=== PATIENT | female | born 1970 | race African-American/Black ===

== ENCOUNTER → 2016-11-13 | Outpatient (CLI) | payer BC ==
[~2016-11-13] MED LIST: ALBU18HF2 IH; TRIA1TAB94 PO; ZOLP10TA2 PO
== END | disposition home or self-care (01) ==
LOC: MAMMO 07:44
PROVIDERS: ATTEND Specialist
DX: C50.911 Malignant neoplasm of unspecified site of right female breast (principal); C50.912 Malignant neoplasm of unspecified site of left female breast; R92.8 Other abnormal and inconclusive findings on diagnostic imaging of breast
CPT/HCPCS: 76642; G0204

== ENCOUNTER → 2017-02-12 | Outpatient (CLI) | payer BC | END | disposition home or self-care (01) | LOC: US 10:33 | PROVIDERS: ATTEND Specialist | DX: C50.911 Malignant neoplasm of unspecified site of right female breast (principal); N60.01 Solitary cyst of right breast | CPT/HCPCS: 76641 ==

== ENCOUNTER → 2017-03-16 | Outpatient (CLI) | payer BC ==
[2017-03-16 07:20] LABS: BASOPHILS % 0.8 % (0.0-2.0); CLARITY URINE CLEAR (CLEAR); COLOR URINE YELLOW (YELLOW); EOSINOPHILS % 0.3 % (0.0-5.0); GLUCOSE URINE NEGATIVE (NEGATIVE); HEMATOCRIT. 38.4 % (36.0-48.0); HEMOGLOBIN. 12.4 g/dL (12.0-16.0); KETONES URINE TRACE (NEGATIVE); LEUKOCYTE ESTERASE URINE TRACE (NEGATIVE); LYMPHOCYTES % 22.1 % (20.0-50.0); MEAN CORPUSCULAR HEMOGLOBIN 23.9 pg (28.0-32.0); MEAN CORPUSCULAR VOLUME 74.3 fL (81.0-99.0); MEAN PLATELET VOLUME 8.5 fl (7.4-10.4); MONOCYTES % 10.5 % (2.0-8.0); NEUTROPHILS % 66.3 % (40.0-76.0); NITRITE URINE NEGATIVE (NEGATIVE); OCCULT BLOOD URINE 2+ (NEGATIVE); PH URINE 5.5 (4.5-8.0); PLATELET 257 x1000/uL (130-400); PROTEIN URINE TRACE (NEGATIVE); RED BLOOD CELL COUNT 5.17 mill/uL (4.2-5.4); RED CELL DISTRIBUTION WIDTH 15.3 % (11.6-14.6); SPECIFIC GRAVITY URINE 1.029 (1.005-1.030)
[2017-03-16 07:23] LABS: INR 1.1; PROTHROMBIN TIME 11.5 sec (9.4-11.6)
[2017-03-16 07:35] LABS: HCG SCREEN NEGATIVE
[2017-03-16 07:55] LABS: CARBON DIOXIDE 27 mEq/L (21-32); CHLORIDE 105 mEq/L (98-107)
== END | disposition home or self-care (01) ==
LOC: LAB 06:50
PROVIDERS: ATTEND Internal Medicine Geriatric Medicine
DX: Z01.812 Encounter for preprocedural laboratory examination (principal); Z79.01 Long term (current) use of anticoagulants
CPT/HCPCS: 36415; 80053; 81001; 84703; 85025; 85610; 85730; 87086

== ENCOUNTER 2017-03-26 05:56 | Day surgery (SDC) | payer BC ==
[~2017-03-26] VITALS: Ht 165.1 cm; Wt 77.1 kg
[2017-03-26] MEDS ORDERED: LACTATED RINGERS 1,000 ML IV SCH (06:40)
[2017-03-26] MEDS ORDERED: LIDOCAINE HCL 1% 20ML VIAL (Pyxis) INJ ONE ×2 (06:51→08:24)
[2017-03-26] MEDS ORDERED: BUPIVACAINE HCL/PF 0.5% (5MG/ML) 10ML ONE (06:52)
[2017-03-26] MEDS ORDERED: BACITRACIN 50,000 UNITS/VIAL ONE (07:34)
[2017-03-26] MEDS ORDERED: METHYLENE BLUE 50 MG/10 ML AMP IV ONE (07:34)
[2017-03-26] MEDS ORDERED: NORMAL SALINE 0.9% 10 ML SYR ONE (07:34)
[2017-03-26] MEDS ORDERED: MIDAZOLAM HCL 2 MG/2 ML VIAL ONE (07:43)
[2017-03-26] MEDS ORDERED: FENTANYL CITRATE/PF 50MCG/ML 2ML VIAL ONE (07:43)
[2017-03-26] MEDS ORDERED: PROPOFOL 200MG/20ML VIAL IV ONE (08:24)
[2017-03-26] MEDS ORDERED: DEXAMETHASONE 4MG/ML 1ML VIAL ONE (08:24)
[2017-03-26] MEDS ORDERED: SODIUM CHLORIDE 0.9% 10ML VIAL ONE ×2 (08:24→09:36)
[2017-03-26] MEDS ORDERED: CEFAZOLIN SODIUM 1000MG/VIAL ONE (08:24)
[2017-03-26] MEDS ORDERED: ONDANSETRON HCL 4MG/2ML VIAL ONE (08:24)
[2017-03-26] MEDS ORDERED: SKIN ADHESIVE 0.7 GM EA TOP ONE (08:40)
[2017-03-26] MEDS ORDERED: HYDROMORPHONE HCL/PF 2MG/ML (OR) ONE (09:35)
[2017-03-26] MEDS ORDERED: ONDANSETRON HCL 4MG/2ML VIAL IV PRN (10:00)
[2017-03-26] MEDS ORDERED: LABETALOL HCL 20MG/4ML CARPUJECT IV PRN (10:00)
[2017-03-26] MEDS ORDERED: HYDROMORPHONE HCL/PF 2MG/ML CPJ IV PRN (10:00)
[2017-03-26] MEDS ORDERED: MEPERIDINE HCL/PF 25MG/ML CPJ IV PRN (10:00)
== END 2017-03-26 11:30 | disposition home or self-care (01) ==
LOC: OR 05:56
PROVIDERS: ATTEND Specialist
DX: D24.1 Benign neoplasm of right breast (principal); N60.31 Fibrosclerosis of right breast; I10 Essential (primary) hypertension; J45.909 Unspecified asthma, uncomplicated; Z88.2 Allergy status to sulfonamides; Z88.8 Allergy status to other drugs, medicaments and biological substances; Z91.030 Bee allergy status
CPT/HCPCS: 19120; 88307; A4216; G0168; J0690; J1100; J1170; J2250; J2405; J3010; J3490; J7120; J2704; Q9968

== ENCOUNTER → 2017-07-29 | Outpatient (CLI) | payer BC ==
[~2017-07-29] MED LIST changes: +ALBUTEROL (0.083%) 2.5MG/3ML NEB ONE
== END | disposition home or self-care (01) ==
LOC: PF 14:53
PROVIDERS: ATTEND Internal Medicine Geriatric Medicine
DX: J45.909 Unspecified asthma, uncomplicated (principal); R79.89 Other specified abnormal findings of blood chemistry; Z79.899 Other long term (current) drug therapy
CPT/HCPCS: 94060; 94727; 94729; J7611

== ENCOUNTER 2017-11-27 18:05 | Emergency (ER) | payer BC ==
[~2017-11-27] VITALS: Ht 162.6 cm; Wt 78.0 kg
[~2017-11-27 18:05] MED LIST changes: -ALBUTEROL (0.083%) 2.5MG/3ML NEB ONE
[2017-11-27] MEDS ORDERED: IBUPROFEN 800MG TABLET PO ONE (18:15)
[2017-11-27 19:50] VITALS: BP 161/99
== END 2017-11-27 19:45 | disposition home or self-care (01) ==
LOC: ER 18:05
DX: S16.1XXA Strain of muscle, fascia and tendon at neck level, initial encounter (principal); Z88.2 Allergy status to sulfonamides; Z88.8 Allergy status to other drugs, medicaments and biological substances; Z91.030 Bee allergy status; Z90.710 Acquired absence of both cervix and uterus; V43.92XA Unspecified car occupant injured in collision with other type car in traffic accident, initial encounter; Y93.89 Activity, other specified; Y92.488 Other paved roadways as the place of occurrence of the external cause
CPT/HCPCS: 72040; 99284

== ENCOUNTER → 2018-02-18 | Outpatient (CLI) | payer BC | END | disposition home or self-care (01) | LOC: MAMMO 09:12 | PROVIDERS: ATTEND Internal Medicine Geriatric Medicine | DX: Z12.31 Encounter for screening mammogram for malignant neoplasm of breast (principal); N63.22 Unspecified lump in the left breast, upper inner quadrant | CPT/HCPCS: 76642; 77067 ==

== ENCOUNTER → 2018-03-03 | Outpatient (CLI) | payer BC ==
[2018-03-03 10:16] LABS: BASOPHILS % 0.4 % (0.0-2.0); EOSINOPHILS % 0.1 % (0.0-5.0); HEMATOCRIT. 40.5 % (36.0-48.0); HEMOGLOBIN. 13.3 g/dL (12.0-16.0); LYMPHOCYTES % 29.1 % (20.0-50.0); MEAN PLATELET VOLUME 8.2 fl (7.4-10.4); MONOCYTES % 12.5 % (2.0-8.0); NEUTROPHILS % 57.9 % (40.0-76.0); PLATELET 274 x1000/uL (130-400); RED BLOOD CELL COUNT 5.33 mill/uL (4.2-5.4); RED CELL DISTRIBUTION WIDTH 15.6 % (11.6-14.6)
[2018-03-03 10:55] LABS: CHLORIDE 100 mEq/L (98-107)
[2018-03-03 11:02] LABS: TOTAL IRON BINDING CAPACITY 356 ug/dL (250-450)
[2018-03-07 04:10] LABS: 25-HYDROXY VITAMIN D3 20 ng/mL (.)
== END | disposition home or self-care (01) ==
LOC: LAB 09:55
PROVIDERS: ATTEND Internal Medicine Geriatric Medicine
DX: Z00.01 Encounter for general adult medical examination with abnormal findings (principal); I10 Essential (primary) hypertension; E11.9 Type 2 diabetes mellitus without complications
CPT/HCPCS: 36415; 80053; 82270; 82306; 82728; 82746; 83036; 83540; 83550; 84443; 85025; 86592; 87493; 89055

== ENCOUNTER → 2018-03-11 | Outpatient (CLI) | payer BC ==
[2018-03-11 09:01] LABS: BASOPHILS % 0.7 % (0.0-2.0); EOSINOPHILS % 0.4 % (0.0-5.0); HEMATOCRIT. 40.3 % (36.0-48.0); HEMOGLOBIN. 13.2 g/dL (12.0-16.0); LYMPHOCYTES % 23.4 % (20.0-50.0); MEAN CORPUSCULAR HEMOGLOBIN 24.8 pg (28.0-32.0); MEAN CORPUSCULAR VOLUME 75.6 fL (81.0-99.0); MEAN PLATELET VOLUME 8.2 fl (7.4-10.4); MONOCYTES % 11.2 % (2.0-8.0); NEUTROPHILS % 64.3 % (40.0-76.0); PLATELET 257 x1000/uL (130-400); RED BLOOD CELL COUNT 5.32 mill/uL (4.2-5.4); RED CELL DISTRIBUTION WIDTH 15.2 % (11.6-14.6)
[2018-03-11 09:20] LABS: TOTAL IRON BINDING CAPACITY 388 ug/dL (250-450)
== END | disposition home or self-care (01) ==
LOC: LAB 08:34
PROVIDERS: ATTEND Internal Medicine Geriatric Medicine
DX: D50.9 Iron deficiency anemia, unspecified (principal)
CPT/HCPCS: 36415; 82728; 83540; 83550; 85025

== ENCOUNTER → 2018-05-26 | Outpatient (CLI) | payer BC ==
[2018-05-26 11:34] LABS: BASOPHILS % 0.9 % (0.0-2.0); EOSINOPHILS % 0.3 % (0.0-5.0); HEMATOCRIT. 38.8 % (36.0-48.0); HEMOGLOBIN. 12.5 g/dL (12.0-16.0); LYMPHOCYTES % 31.5 % (20.0-50.0); MEAN CORPUSCULAR HEMOGLOBIN 24.8 pg (28.0-32.0); MEAN PLATELET VOLUME 8.6 fl (7.4-10.4); MONOCYTES % 10.8 % (2.0-8.0); NEUTROPHILS % 56.5 % (40.0-76.0); PLATELET 255 x1000/uL (130-400); RED BLOOD CELL COUNT 5.04 mill/uL (4.2-5.4); RED CELL DISTRIBUTION WIDTH 15.3 % (11.6-14.6)
[2018-05-26 12:03] LABS: TOTAL IRON BINDING CAPACITY 377 ug/dL (250-450)
== END | disposition home or self-care (01) ==
LOC: LAB 10:36
PROVIDERS: ATTEND Internal Medicine Geriatric Medicine
DX: D50.9 Iron deficiency anemia, unspecified (principal)
CPT/HCPCS: 36415; 82728; 83540; 83550

== ENCOUNTER → 2018-07-27 | Outpatient (CLI) | payer BC ==
[2018-07-27 07:22] LABS: BASOPHILS % 0.3 % (0.0-2.0); EOSINOPHILS % 0.1 % (0.0-5.0); HEMATOCRIT. 41.9 % (36.0-48.0); HEMOGLOBIN. 13.5 g/dL (12.0-16.0); LYMPHOCYTES % 27.5 % (20.0-50.0); MEAN CORPUSCULAR HEMOGLOBIN 24.7 pg (28.0-32.0); MEAN CORPUSCULAR VOLUME 76.6 fL (81.0-99.0); MEAN PLATELET VOLUME 8.5 fl (7.4-10.4); NEUTROPHILS % 60.1 % (40.0-76.0); PLATELET 267 x1000/uL (130-400); RED BLOOD CELL COUNT 5.47 mill/uL (4.2-5.4)
[2018-07-27 07:29] LABS: FOLIC ACID (FOLATE) SERUM >20 ng/mL ng/mL (>5.38)
[2018-07-27 07:39] LABS: TOTAL IRON BINDING CAPACITY 377 ug/dL (250-450)
== END | disposition home or self-care (01) ==
LOC: LAB 06:36
PROVIDERS: ATTEND Internal Medicine Geriatric Medicine
DX: E61.1 Iron deficiency (principal)
CPT/HCPCS: 36415; 82270; 82746; 83540; 83550

== ENCOUNTER → 2018-08-05 | Outpatient (CLI) | payer BC ==
[2018-08-05 08:14] LABS: CHLORIDE 104 mEq/L (98-107)
[2018-08-05 08:26] LABS: LDL CHOLESTEROL 149 mg/dL (5-100)
[2018-08-05 08:28] LABS: HDL CHOLESTEROL 50 mg/dL (40-59); T4 FREE 1.09 ng/dL (0.76-1.46)
== END | disposition home or self-care (01) ==
LOC: US 07:32
PROVIDERS: ATTEND Internal Medicine Geriatric Medicine
DX: N63.11 Unspecified lump in the right breast, upper outer quadrant (principal); I10 Essential (primary) hypertension; R00.0 Tachycardia, unspecified; D50.9 Iron deficiency anemia, unspecified; R73.09 Other abnormal glucose
CPT/HCPCS: 36415; 76642; 80061; 83036; 84439; 84442; 84443; 84481; 93306

== ENCOUNTER → 2018-08-30 | Outpatient (CLI) | payer BC | END | disposition home or self-care (01) | LOC: CARD 07:11 | PROVIDERS: ATTEND Specialist | DX: R00.2 Palpitations (principal) | CPT/HCPCS: 93017 ==

== ENCOUNTER → 2019-03-17 | Outpatient (CLI) | payer BC | END | disposition home or self-care (01) | LOC: MAMMO 07:39 | PROVIDERS: ATTEND Internal Medicine Geriatric Medicine | DX: N63.10 Unspecified lump in the right breast, unspecified quadrant (principal); N63.20 Unspecified lump in the left breast, unspecified quadrant; N60.01 Solitary cyst of right breast | CPT/HCPCS: 76642; 77066 ==

== ENCOUNTER → 2019-04-25 | Outpatient (CLI) | payer BC ==
[2019-04-25 08:42] LABS: HEMATOCRIT. 41.3 % (36.0-48.0); HEMOGLOBIN. 13.3 g/dL (12.0-16.0); MEAN CORPUSCULAR HEMOGLOBIN 24.5 pg (28.0-32.0); MEAN CORPUSCULAR VOLUME 76.2 fL (81.0-99.0); MEAN PLATELET VOLUME 8.1 fl (7.4-10.4); PLATELET 268 x1000/uL (130-400); RED BLOOD CELL COUNT 5.43 mill/uL (4.2-5.4); RED CELL DISTRIBUTION WIDTH 15.3 % (11.6-14.6)
[2019-04-25 09:21] LABS: CHLORIDE 103 mEq/L (98-107)
[2019-04-25 09:28] LABS: LDL CHOLESTEROL 127 mg/dL (5-100)
[2019-04-25 09:29] LABS: HDL CHOLESTEROL 55 mg/dL (40-59)
[2019-04-25 14:24] LABS: PLATELET ESTIMATE NORMAL
== END | disposition home or self-care (01) ==
LOC: LAB 08:14
PROVIDERS: ATTEND Internal Medicine Geriatric Medicine
DX: I10 Essential (primary) hypertension (principal); I49.8 Other specified cardiac arrhythmias; R73.09 Other abnormal glucose
CPT/HCPCS: 36415; 80061; 83036

== ENCOUNTER → 2019-11-02 | Outpatient (CLI) | payer BC ==
[2019-11-02 07:50] LABS: BASOPHILS % 0.9 % (0.0-2.0); EOSINOPHILS % 0.3 % (0.0-5.0); HEMATOCRIT. 40.2 % (36.0-48.0); HEMOGLOBIN. 13.4 g/dL (12.0-16.0); MEAN CORPUSCULAR HEMOGLOBIN 25.4 pg (28.0-32.0); MEAN CORPUSCULAR VOLUME 76.7 fL (81.0-99.0); MEAN PLATELET VOLUME 8.6 fl (7.4-10.4); MONOCYTES % 11.6 % (2.0-8.0); NEUTROPHILS % 60.2 % (40.0-76.0); PLATELET 254 x1000/uL (130-400); RED BLOOD CELL COUNT 5.25 mill/uL (4.2-5.4); RED CELL DISTRIBUTION WIDTH 14.8 % (11.6-14.6)
[2019-11-02 08:00] LABS: CHLORIDE 106 mEq/L (98-107)
[2019-11-02 08:11] LABS: LDL CHOLESTEROL 130 mg/dL (5-100)
[2019-11-02 08:12] LABS: HDL CHOLESTEROL 51 mg/dL (40-59)
== END | disposition home or self-care (01) ==
LOC: RAD 07:25
PROVIDERS: ATTEND Internal Medicine Geriatric Medicine
DX: Z12.31 Encounter for screening mammogram for malignant neoplasm of breast (principal); M15.9 Polyosteoarthritis, unspecified; I10 Essential (primary) hypertension; R73.09 Other abnormal glucose; N63.0 Unspecified lump in unspecified breast; M25.559 Pain in unspecified hip; N60.02 Solitary cyst of left breast; N60.01 Solitary cyst of right breast
CPT/HCPCS: 36415; 73521; 76642; 77066; 80053; 80061; 83036; 85025; 85651; 86430

== ENCOUNTER 2019-12-01 13:04 | Emergency (ER) | payer BC ==
[~2019-12-01] VITALS: Ht 162.6 cm; Wt 77.3 kg
[2019-12-01 15:56] LABS: HEMATOCRIT. 40.2 % (36.0-48.0); HEMOGLOBIN. 13.3 g/dL (12.0-16.0); MEAN CORPUSCULAR HEMOGLOBIN 25.3 pg (28.0-32.0); MEAN CORPUSCULAR VOLUME 76.4 fL (81.0-99.0); MEAN PLATELET VOLUME 8.9 fl (7.4-10.4); PLATELET 236 x1000/uL (130-400); RED BLOOD CELL COUNT 5.27 mill/uL (4.2-5.4)
[2019-12-01 16:00] LABS: CHLORIDE 107 mEq/L (98-107)
[2019-12-01] MEDS ORDERED: PREDNISONE 20MG TABLET PO STA (16:16)
[2019-12-01 17:19] VITALS: BP 147/93
[2019-12-01 17:27] LABS: PLATELET ESTIMATE NORMAL
== END 2019-12-01 17:21 | disposition home or self-care (01) ==
LOC: ER 13:04
DX: U07.1 COVID-19 (principal); J45.901 Unspecified asthma with (acute) exacerbation; I10 Essential (primary) hypertension; Z88.2 Allergy status to sulfonamides; Z88.8 Allergy status to other drugs, medicaments and biological substances; Z79.899 Other long term (current) drug therapy; Z90.10 Acquired absence of unspecified breast and nipple
CPT/HCPCS: 36415; 71045; 80053; 85025; 99284; C9803; J7512; U0003; 87635

== ENCOUNTER → 2020-07-17 | Outpatient (CLI) | payer BC ==
[2020-07-17 11:20] LABS: BASOPHILS % 0.6 % (0.0-2.0); EOSINOPHILS % 0.1 % (0.0-5.0); HEMATOCRIT. 41.7 % (36.0-48.0); HEMOGLOBIN. 13.4 g/dL (12.0-16.0); LYMPHOCYTES % 29.9 % (20.0-50.0); MEAN CORPUSCULAR HEMOGLOBIN 24.6 pg (28.0-32.0); MEAN CORPUSCULAR VOLUME 76.3 fL (81.0-99.0); MEAN PLATELET VOLUME 8.8 fl (7.4-10.4); MONOCYTES % 9.6 % (2.0-8.0); NEUTROPHILS % 59.8 % (40.0-76.0); PLATELET 251 x1000/uL (130-400); RED BLOOD CELL COUNT 5.47 mill/uL (4.2-5.4); RED CELL DISTRIBUTION WIDTH 14.8 % (11.6-14.6)
[2020-07-17 11:24] LABS: CLARITY URINE CLEAR (CLEAR); COLOR URINE YELLOW (YELLOW); KETONES URINE TRACE (NEGATIVE); LEUKOCYTE ESTERASE URINE NEGATIVE (NEGATIVE); NITRITE URINE NEGATIVE (NEGATIVE); OCCULT BLOOD URINE 1+ (NEGATIVE); PH URINE 5.5 (4.5-8.0); PROTEIN URINE NEGATIVE (NEGATIVE); SPECIFIC GRAVITY URINE 1.024 (1.005-1.030)
[2020-07-17 11:38] LABS: CHLORIDE 104 mEq/L (98-107)
[2020-07-17 11:44] LABS: TOTAL IRON BINDING CAPACITY 398 ug/dL (250-450)
[2020-07-17 11:47] LABS: LDL CHOLESTEROL 163 mg/dL (5-100)
[2020-07-17 11:48] LABS: HDL CHOLESTEROL 69 mg/dL (40-59)
[2020-07-17 12:01] LABS: FOLIC ACID (FOLATE) SERUM >20 ng/mL ng/mL (>5.38)
[2020-07-17 12:04] LABS: FERRITIN 50 ng/mL (10-291)
[2020-07-17 12:12] LABS: VITAMIN B12 SERUM 829 pg/mL (211-911)
== END | disposition home or self-care (01) ==
LOC: LAB 10:26
PROVIDERS: ATTEND Internal Medicine Geriatric Medicine
DX: Z00.01 Encounter for general adult medical examination with abnormal findings (principal); R73.09 Other abnormal glucose; N39.0 Urinary tract infection, site not specified; F51.01 Primary insomnia
CPT/HCPCS: 36415; 80053; 80061; 81003; 82306; 82607; 82728; 82746; 83036; 83540; 83550; 84443; 85025; 86592

== ENCOUNTER → 2020-12-02 | Outpatient (CLI) | payer BC ==
[2020-12-02 10:14] LABS: BASOPHILS % 0.2 % (0.0-2.0); EOSINOPHILS % 0.1 % (0.0-5.0); HEMATOCRIT. 40.3 % (36.0-48.0); HEMOGLOBIN. 13.4 g/dL (12.0-16.0); LYMPHOCYTES % 29.5 % (20.0-50.0); MEAN CORPUSCULAR HEMOGLOBIN 25.4 pg (28.0-32.0); MEAN CORPUSCULAR VOLUME 76.3 fL (81.0-99.0); MEAN PLATELET VOLUME 8.7 fl (7.4-10.4); MONOCYTES % 9.9 % (2.0-8.0); NEUTROPHILS % 60.3 % (40.0-76.0); PLATELET 251 x1000/uL (130-400); RED BLOOD CELL COUNT 5.29 mill/uL (4.2-5.4); RED CELL DISTRIBUTION WIDTH 14.5 % (11.6-14.6)
[2020-12-02 10:28] LABS: CHLORIDE 104 mEq/L (98-107)
[2020-12-02 14:58] LABS: FOLIC ACID (FOLATE) SERUM > 20.00 ng/mL (>5.38)
== END | disposition home or self-care (01) ==
LOC: LAB 09:41
PROVIDERS: ATTEND Internal Medicine Geriatric Medicine
DX: I10 Essential (primary) hypertension (principal); R73.09 Other abnormal glucose; F51.01 Primary insomnia; R63.4 Abnormal weight loss
CPT/HCPCS: 36415; 80053; 82378; 82746; 83036; 84443; 85025

== ENCOUNTER → 2020-12-04 | Outpatient (CLI) | payer BC | END | disposition home or self-care (01) | LOC: MAMMO 12:51 | PROVIDERS: ATTEND Internal Medicine Geriatric Medicine | DX: N60.01 Solitary cyst of right breast (principal); N60.02 Solitary cyst of left breast; N63.20 Unspecified lump in the left breast, unspecified quadrant; N63.10 Unspecified lump in the right breast, unspecified quadrant; Z87.898 Personal history of other specified conditions | CPT/HCPCS: 76642; 77066 ==

== ENCOUNTER → 2021-09-12 | Outpatient (CLI) | payer BC ==
[2021-09-12 08:33] LABS: BASOPHILS % 0.3 % (0.0-2.0); EOSINOPHILS % 0.2 % (0.0-5.0); HEMOGLOBIN. 12.4 g/dL (12.0-16.0); LYMPHOCYTES % 22.9 % (20.0-50.0); MEAN CORPUSCULAR HEMOGLOBIN 25.2 pg (28.0-32.0); MEAN CORPUSCULAR VOLUME 77.3 fL (81.0-99.0); MEAN PLATELET VOLUME 8.1 fl (7.4-10.4); MONOCYTES % 12.4 % (2.0-8.0); NEUTROPHILS % 64.2 % (40.0-76.0); PLATELET 263 x1000/uL (130-400); RED BLOOD CELL COUNT 4.92 mill/uL (4.2-5.4)
[2021-09-12 08:37] LABS: CHLORIDE 108 mEq/L (98-107)
[2021-09-12 08:45] LABS: LDL CHOLESTEROL 116 mg/dL (5-100)
[2021-09-12 08:47] LABS: HDL CHOLESTEROL 56 mg/dL (40-59)
== END | disposition home or self-care (01) ==
LOC: MAMMO 07:46
PROVIDERS: ATTEND Internal Medicine Geriatric Medicine
DX: N60.02 Solitary cyst of left breast (principal); N60.01 Solitary cyst of right breast; R92.1 Mammographic calcification found on diagnostic imaging of breast; I08.2 Rheumatic disorders of both aortic and tricuspid valves; R60.9 Edema, unspecified; I10 Essential (primary) hypertension; E78.5 Hyperlipidemia, unspecified; R73.09 Other abnormal glucose
CPT/HCPCS: 36415; 76642; 77066; 80053; 80061; 83036; 84443; 85025; 93306

== ENCOUNTER → 2022-09-09 | Outpatient (CLI) | payer BC | END | disposition home or self-care (01) | LOC: RAD 09-07 10:31 | PROVIDERS: ATTEND Internal Medicine Geriatric Medicine | DX: R05.3 Chronic cough (principal) | CPT/HCPCS: 71046 ==

== ENCOUNTER → 2022-10-07 | Outpatient (CLI) | payer BC ==
[2022-10-07 07:14] LABS: HEMATOCRIT. 38.8 % (36.0-48.0); HEMOGLOBIN. 12.6 g/dL (12.0-16.0); MEAN CORPUSCULAR HEMOGLOBIN 24.8 pg (28.0-32.0); MEAN CORPUSCULAR VOLUME 76.5 fL (81.0-99.0); MEAN PLATELET VOLUME 8.1 fl (7.4-10.4); PLATELET 255 x1000/uL (130-400); RED BLOOD CELL COUNT 5.08 mill/uL (4.2-5.4); RED CELL DISTRIBUTION WIDTH 15.1 % (11.6-14.6)
[2022-10-07 08:00] LABS: CHLORIDE 102 mEq/L (98-107); HDL CHOLESTEROL 66 mg/dL (40-59); LDL CHOLESTEROL 138 mg/dL (5-100); TOTAL IRON BINDING CAPACITY 344 ug/dL (250-450)
[2022-10-07 08:20] LABS: CLARITY URINE CLEAR (CLEAR); COLOR URINE YELLOW (YELLOW); KETONES URINE TRACE (NEGATIVE); LEUKOCYTE ESTERASE URINE NEGATIVE (NEGATIVE); NITRITE URINE NEGATIVE (NEGATIVE); OCCULT BLOOD URINE 1+ (NEGATIVE); PH URINE 6.5 (4.5-8.0); PROTEIN URINE TRACE (NEGATIVE); SPECIFIC GRAVITY URINE 1.025 (1.005-1.030)
[2022-10-07 08:24] LABS: VITAMIN B12 SERUM 736 pg/mL (211-911)
[2022-10-07 11:02] LABS: FERRITIN 32 ng/mL (10-291)
[2022-10-07 11:13] LABS: HEPATITIS B SURFACE ANTIGEN NEGATIVE
[2022-10-07 12:04] LABS: PLATELET ESTIMATE NORMAL
[2022-10-07 14:20] LABS: FOLIC ACID (FOLATE) SERUM > 20.00 ng/mL (>5.38)
== END | disposition home or self-care (01) ==
LOC: LAB 06:38
PROVIDERS: ATTEND Internal Medicine Geriatric Medicine
DX: Z00.01 Encounter for general adult medical examination with abnormal findings (principal); N39.0 Urinary tract infection, site not specified; I10 Essential (primary) hypertension; R73.09 Other abnormal glucose; E78.5 Hyperlipidemia, unspecified; F51.01 Primary insomnia
CPT/HCPCS: 36415; 80053; 80061; 81003; 82306; 82607; 82728; 82746; 83036; 83540; 83550; 84443; 85025; 86592; 86705; 86709; 86803; 87340

== ENCOUNTER → 2022-10-15 | Outpatient (CLI) | payer BC ==
[~2022-10-15] MED LIST changes: +ALBUTEROL (0.083%) 2.5MG/3ML NEB ONE
[2022-10-15 14:42] LABS: CHLORIDE 104 mEq/L (98-107)
== END | disposition home or self-care (01) ==
LOC: PF 13:36
PROVIDERS: ATTEND Internal Medicine Geriatric Medicine
DX: Z11.52 Encounter for screening for COVID-19 (principal); E87.6 Hypokalemia; D72.825 Bandemia; R31.9 Hematuria, unspecified; J42 Unspecified chronic bronchitis; J45.909 Unspecified asthma, uncomplicated
CPT/HCPCS: 36415; 80053; 87086; 87426; 94060; 94727; 94729; C9803; Z7610

== ENCOUNTER → 2022-10-30 | Outpatient (CLI) | payer BC ==
[~2022-10-30] MED LIST changes: -ALBUTEROL (0.083%) 2.5MG/3ML NEB ONE
== END | disposition home or self-care (01) ==
LOC: CARD 08:06
PROVIDERS: ATTEND Internal Medicine Geriatric Medicine
DX: I11.9 Hypertensive heart disease without heart failure (principal); R60.9 Edema, unspecified
CPT/HCPCS: 93306

== ENCOUNTER → 2022-12-15 | Outpatient (CLI) | payer BC ==
[2022-12-15 17:14] LABS: BASOPHILS % 0.6 % (0.0-2.0); EOSINOPHILS % 0.5 % (0.0-5.0); HEMATOCRIT. 38.6 % (36.0-48.0); HEMOGLOBIN. 12.8 g/dL (12.0-16.0); LYMPHOCYTES % 25.4 % (20.0-50.0); MEAN CORPUSCULAR HEMOGLOBIN 25.6 pg (28.0-32.0); MEAN CORPUSCULAR VOLUME 76.7 fL (81.0-99.0); MEAN PLATELET VOLUME 8.2 fl (7.4-10.4); MONOCYTES % 14.4 % (2.0-8.0); NEUTROPHILS % 59.1 % (40.0-76.0); PLATELET 281 x1000/uL (130-400); RED BLOOD CELL COUNT 5.03 mill/uL (4.2-5.4); RED CELL DISTRIBUTION WIDTH 15.7 % (11.6-14.6)
[2022-12-15 17:18] LABS: CLARITY URINE CLEAR (CLEAR); COLOR URINE YELLOW (YELLOW); KETONES URINE NEGATIVE (NEGATIVE); LEUKOCYTE ESTERASE URINE 1+ (NEGATIVE); NITRITE URINE NEGATIVE (NEGATIVE); OCCULT BLOOD URINE 1+ (NEGATIVE); PH URINE 5.5 (4.5-8.0); PROTEIN URINE NEGATIVE (NEGATIVE); SPECIFIC GRAVITY URINE 1.018 (1.005-1.030); UROBILINOGEN URINE 0.2 E.U./dL (0.2-1.0)
[2022-12-15 17:21] LABS: CHLORIDE 102 mEq/L (98-107)
== END | disposition home or self-care (01) ==
LOC: LAB 16:12
PROVIDERS: ATTEND Internal Medicine Geriatric Medicine
DX: E86.0 Dehydration (principal); D72.825 Bandemia; R31.9 Hematuria, unspecified
CPT/HCPCS: 36415; 80053; 81003; 85025

== ENCOUNTER → 2023-01-01 | Outpatient (CLI) | payer BC | END | disposition home or self-care (01) | LOC: MAMMO 07:46 | PROVIDERS: ATTEND Internal Medicine Geriatric Medicine | DX: N60.01 Solitary cyst of right breast (principal); N60.02 Solitary cyst of left breast; N63.10 Unspecified lump in the right breast, unspecified quadrant | CPT/HCPCS: 76642; 77066 ==

== ENCOUNTER → 2023-02-23 | Outpatient (CLI) | payer BC ==
[2023-02-23 18:36] LABS: CHLORIDE 105 mEq/L (98-107); INDEX HEMOLYSI 1 (1-3); INDEX ICTERIC 1 (1-4); INDEX LIPEMIC 1 (1-3); POTASSIUM 3.4 mEq/L (3.5-5.1); SODIUM 138 mEq/L (136-145)
[2023-02-23 18:53] LABS: ALANINE AMINOTRANSFERASE 28 IU/L (13-61); ALBUMIN 3.6 g/dL (3.4-5.0); ASPARTATE AMINOTRANSFERASE 21 IU/L (15-37); BILIRUBIN TOTAL 0.3 mg/dL (0.1-1.0); CARBON DIOXIDE 31 mEq/L (21-32); CHOLESTEROL 197 mg/dL (<200); GLUCOSE 90 mg/dL (70-105); HDL CHOLESTEROL 54 mg/dL (40-59); LDL CHOLESTEROL 126 mg/dL (5-100); PROTEIN TOTAL 7.9 g/dL (6.0-8.3); T4 FREE 0.86 ng/dL (0.76-1.46); THYROID STIMULATING HORMONE 0.57 uIU/mL (0.36-3.74); TRIGLYCERIDE 208 mg/dL (0-150); UREA NITROGEN BLOOD 14 mg/dL (7-21)
[2023-02-23 19:17] LABS: CLARITY URINE CLEAR (CLEAR); COLOR URINE YELLOW (YELLOW); GLUCOSE URINE NEGATIVE (NEGATIVE); KETONES URINE NEGATIVE (NEGATIVE); LEUKOCYTE ESTERASE URINE TRACE (NEGATIVE); NITRITE URINE NEGATIVE (NEGATIVE); OCCULT BLOOD URINE 2+ (NEGATIVE); PH URINE 6.5 (4.5-8.0); PROTEIN URINE NEGATIVE (NEGATIVE); SPECIFIC GRAVITY URINE 1.016 (1.005-1.030); UROBILINOGEN URINE 0.2 E.U./dL (0.2-1.0)
[2023-02-23 19:21] LABS: BACTERIA URINE 1+; SQUAMOUS EPITHELIAL CELL URINE 1+ /lpf (RARE/1+); YEAST URINE NONE SEEN
[2023-02-23 21:33] LABS: WBC URINE 0-2 /hpf (0-2)
[2023-02-25 08:11] LABS: *THYROXINE INDEX FREE 1.6 (1.2-4.9); T4 THYROXINE 6.8 ug/dL (4.5-12.0)
== END | disposition home or self-care (01) ==
LOC: LAB 17:44
PROVIDERS: ATTEND Internal Medicine Geriatric Medicine
DX: E87.6 Hypokalemia (principal)
CPT/HCPCS: 36415; 80053; 80061; 81003; 83036; 83735; 84436; 84439; 84443; 84479

== ENCOUNTER → 2023-06-24 | Outpatient (CLI) | payer BC | END | disposition home or self-care (01) | LOC: MRI 07:43 | PROVIDERS: ATTEND Internal Medicine Geriatric Medicine | DX: M75.121 Complete rotator cuff tear or rupture of right shoulder, not specified as traumatic (principal); M75.101 Unspecified rotator cuff tear or rupture of right shoulder, not specified as traumatic; M65.811 Other synovitis and tenosynovitis, right shoulder; M19.011 Primary osteoarthritis, right shoulder; M75.51 Bursitis of right shoulder | CPT/HCPCS: 73221 ==

== ENCOUNTER → 2023-12-14 | Outpatient (CLI) | payer BC ==
[2023-12-14 10:19] LABS: BASOPHILS % 0.7 % (0.0-2.0); DIFFERENTIAL COMMENT 0; EOSINOPHILS % 0.2 % (0.0-5.0); HEMATOCRIT. 43.5 % (36.0-48.0); HEMOGLOBIN. 13.7 g/dL (12.0-16.0); LYMPHOCYTES % 29.1 % (20.0-50.0); MEAN CORPUSCULAR HEMOGLOBIN 24.5 pg (28.0-32.0); MEAN CORPUSCULAR HGB CONC 31.6 g/dL (31.0-37.0); MEAN CORPUSCULAR VOLUME 77.6 fL (81.0-99.0); MEAN PLATELET VOLUME 8.4 fl (7.4-10.4); MONOCYTES % 10.1 % (2.0-8.0); NEUTROPHILS % 59.9 % (40.0-76.0); PLATELET 295 x1000/uL (130-400); RED CELL DISTRIBUTION WIDTH 16.1 % (11.6-14.6)
[2023-12-14 10:28] LABS: CALCIUM 9.8 mg/dL (8.7-10.4); CARBON DIOXIDE 30 mEq/L (21-32); CHLORIDE 102 mEq/L (98-107); POTASSIUM 3.5 mEq/L (3.5-5.1); SODIUM 138 mEq/L (136-145)
[2023-12-14 10:33] LABS: CLARITY URINE CLEAR (CLEAR); COLOR URINE YELLOW (YELLOW); CREATININE 1.3 mg/dL (0.6-1.0); GLUCOSE 98 mg/dL (70-105); GLUCOSE URINE NEGATIVE (NEGATIVE); IRON 61 ug/dL (50-170); KETONES URINE NEGATIVE (NEGATIVE); LEUKOCYTE ESTERASE URINE TRACE (NEGATIVE); NITRITE URINE NEGATIVE (NEGATIVE); OCCULT BLOOD URINE NEGATIVE (NEGATIVE); PH URINE 8.5 (4.5-8.0); PROTEIN URINE TRACE (NEGATIVE); SPECIFIC GRAVITY URINE 1.022 (1.005-1.030)
[2023-12-14 10:34] LABS: LDL CHOLESTEROL 170 mg/dL (5-100); TRIGLYCERIDE 133 mg/dL (0-150); UREA NITROGEN BLOOD 13 mg/dL (9-23)
[2023-12-14 10:35] LABS: ALANINE AMINOTRANSFERASE 16 IU/L (10-49); ALBUMIN 4.8 g/dL (3.2-4.8); ASPARTATE AMINOTRANSFERASE 23 IU/L (<34); CHOLESTEROL 246 mg/dL (<200); HDL CHOLESTEROL 60 mg/dL (>65)
[2023-12-14 10:36] LABS: BILIRUBIN TOTAL 0.8 mg/dL (0.1-1.0); PROTEIN TOTAL 8.3 g/dL (6.0-8.3); TOTAL IRON BINDING CAPACITY 207 ug/dl (250-425)
[2023-12-14 10:38] LABS: T4 FREE 1.09 ng/dL (0.89-1.76); THYROID STIMULATING HORMONE 0.36 uIU/mL (0.55-4.78)
[2023-12-14 11:10] LABS: BACTERIA URINE 3+; MUCUS URINE 1+ /lpf (< = 2+); RBC URINE 0-2 /hpf (0-2); SQUAMOUS EPITHELIAL CELL URINE 2+ /lpf (RARE/1+); WBC URINE 0-2 /hpf (0-2)
[2023-12-14 12:59] LABS: FOLIC ACID (FOLATE) SERUM > 20.00 ng/mL (>5.38); VITAMIN B12 SERUM 386 pg/mL (211-911)
[2023-12-15 08:09] LABS: FOLICLE STIMULATING HORMONE 66.1 mIU/mL (.); T4 THYROXINE 8.9 ug/dL (4.5-12.0); VITAMIN D 25-OH 37.8 ng/mL (30.0-100.0)
== END | disposition home or self-care (01) ==
LOC: LAB 06:52
PROVIDERS: ATTEND Internal Medicine Geriatric Medicine
DX: Z00.01 Encounter for general adult medical examination with abnormal findings (principal); I10 Essential (primary) hypertension; E87.6 Hypokalemia; E78.5 Hyperlipidemia, unspecified
CPT/HCPCS: 36415; 80053; 80061; 81003; 82306; 82607; 82746; 83001; 83036; 83540; 83550; 84436; 84439; 84443; 85025; 86592

== ENCOUNTER 2024-01-26 07:44 | Emergency (ER) | payer BC ==
[~2024-01-26] VITALS: Ht 167.6 cm; Wt 81.0 kg
[2024-01-26 07:50] VITALS: O2SAT 99
[2024-01-26 08:29] LABS: BASOPHILS % 0.7 % (0.0-2.0); DIFFERENTIAL COMMENT 0; EOSINOPHILS % 0.1 % (0.0-5.0); HEMATOCRIT. 39.7 % (36.0-48.0); HEMOGLOBIN. 12.8 g/dL (12.0-16.0); MEAN CORPUSCULAR HEMOGLOBIN 24.7 pg (28.0-32.0); MEAN CORPUSCULAR HGB CONC 32.1 g/dL (31.0-37.0); MEAN CORPUSCULAR VOLUME 76.8 fL (81.0-99.0); MEAN PLATELET VOLUME 8.5 fl (7.4-10.4); NEUTROPHILS % 74.2 % (40.0-76.0); PLATELET 254 x1000/uL (130-400); RED BLOOD CELL COUNT 5.16 mill/uL (4.2-5.4); RED CELL DISTRIBUTION WIDTH 16.2 % (11.6-14.6); WHITE BLOOD COUNT 10.2 x1000/uL (4.5-11.0)
[2024-01-26 08:32] LABS: CHLORIDE 105 mEq/L (98-107); POTASSIUM 4.2 mEq/L (3.5-5.1); SODIUM 137 mEq/L (136-145)
[2024-01-26 08:33] LABS: CALCIUM 9.8 mg/dL (8.7-10.4); CARBON DIOXIDE 28 mEq/L (21-32)
[2024-01-26 08:38] LABS: CREATININE 1.1 mg/dL (0.6-1.0); GLUCOSE 120 mg/dL (70-105)
[2024-01-26 08:39] LABS: UREA NITROGEN BLOOD 12 mg/dL (9-23)
[2024-01-26 08:40] LABS: ALANINE AMINOTRANSFERASE 21 IU/L (10-49); ALBUMIN 4.6 g/dL (3.2-4.8); ASPARTATE AMINOTRANSFERASE 25 IU/L (<34); BILIRUBIN DIRECT 0.1 mg/dL (<=3.0)
[2024-01-26 08:41] LABS: BILIRUBIN TOTAL 0.6 mg/dL (0.1-1.0); PROTEIN TOTAL 7.8 g/dL (6.0-8.3)
[2024-01-26 08:48] LABS: CLARITY URINE TURBID (CLEAR); COLOR URINE BLOODY (YELLOW)
[2024-01-26 08:49] LABS: GLUCOSE URINE NEGATIVE (NEGATIVE); KETONES URINE NEGATIVE (NEGATIVE); NITRITE URINE NEGATIVE (NEGATIVE); OCCULT BLOOD URINE 3+ (NEGATIVE); PROTEIN URINE 3+ (NEGATIVE)
[2024-01-26 08:50] LABS: LEUKOCYTE ESTERASE URINE 1+ (NEGATIVE); UROBILINOGEN URINE 0.2 E.U./dL (0.2-1.0)
[2024-01-26 09:04] LABS: RBC URINE TNTC /hpf (0-2)
[2024-01-26 09:05] LABS: SQUAMOUS EPITHELIAL CELL URINE NONE SEEN /lpf (RARE/1+)
[2024-01-26 09:06] LABS: BACTERIA URINE NONE SEEN
[2024-01-26] MEDS: CEPHALEXIN 250MG CAPSULE PO ONE (10:27)
[2024-01-26] MEDS: IBUPROFEN 800MG TABLET PO ONE (10:27)
[2024-01-26] MEDS: PHENAZOPYRIDINE HCL 100MG TABLET PO ONE (10:27)
[2024-01-26] MEDS ORDERED: PYR200 MT (11:33)
[2024-01-26] MEDS ORDERED: CEPH500C2 MT (11:33)
[2024-01-26] MEDS ORDERED: IBUP-2030 MT (11:33)
[2024-01-26 12:06] VITALS: BP 139/61; PULSE 64; RESP 18; TEMP 36.66960; O2SAT 99
[2024-01-26] MEDS ORDERED: HYDR-4001 MT (12:12)
== END 2024-01-26 13:11 | disposition home or self-care (01) ==
LOC: ER 07:44
DX: N30.81 Other cystitis with hematuria (principal); N83.291 Other ovarian cyst, right side; I10 Essential (primary) hypertension; Z90.710 Acquired absence of both cervix and uterus; Z98.890 Other specified postprocedural states; Z88.2 Allergy status to sulfonamides; Z88.8 Allergy status to other drugs, medicaments and biological substances
CPT/HCPCS: 36415; 74176; 76830; 76856; 80048; 80076; 81003; 81025; 85025; 86850; 86900; 93005; 99284

== ENCOUNTER → 2024-01-27 | Outpatient (CLI) | payer BC ==
[~2024-01-27] MED LIST changes: +CEPH500C2 MT; +HYDR-4001 MT; +IBUP-2030 MT; +PYR200 MT
[2024-01-27 12:46] LABS: CLARITY URINE CLEAR (CLEAR); COLOR URINE ORANGE (YELLOW)
[2024-01-27 12:54] LABS: GLUCOSE URINE 1+ (NEGATIVE); PROTEIN URINE 3+ (NEGATIVE)
[2024-01-27 12:55] LABS: KETONES URINE 1+ (NEGATIVE); LEUKOCYTE ESTERASE URINE 1+ (NEGATIVE); NITRITE URINE POSITIVE (NEGATIVE); OCCULT BLOOD URINE 2+ (NEGATIVE); UROBILINOGEN URINE >8.0 E.U./dL (0.2-1.0)
[2024-01-27 13:24] LABS: SQUAMOUS EPITHELIAL CELL URINE 3+ /lpf (RARE/1+)
[2024-01-27 13:25] LABS: RBC URINE 25-50 /hpf (0-2)
[2024-01-27 13:26] LABS: BACTERIA URINE 4+
== END | disposition home or self-care (01) ==
LOC: LAB 11:15
DX: N83.201 Unspecified ovarian cyst, right side (principal); N30.80 Other cystitis without hematuria
CPT/HCPCS: 81003; 86304

== ENCOUNTER → 2024-05-16 | Outpatient (CLI) | payer BC ==
[2024-05-16 08:47] LABS: CLARITY URINE CLEAR (CLEAR); COLOR URINE YELLOW (YELLOW); GLUCOSE URINE NEGATIVE (NEGATIVE); KETONES URINE TRACE (NEGATIVE); LEUKOCYTE ESTERASE URINE NEGATIVE (NEGATIVE); NITRITE URINE NEGATIVE (NEGATIVE); OCCULT BLOOD URINE 2+ (NEGATIVE); PROTEIN URINE TRACE (NEGATIVE); SPECIFIC GRAVITY URINE 1.023 (1.005-1.030); UROBILINOGEN URINE 0.2 E.U./dL (0.2-1.0)
[2024-05-16 09:04] LABS: CARBON DIOXIDE 32 mEq/L (21-32); CHLORIDE 101 mEq/L (98-107); POTASSIUM 3.5 mEq/L (3.5-5.1); SODIUM 140 mEq/L (136-145)
[2024-05-16 09:05] LABS: CALCIUM 10.4 mg/dL (8.7-10.4)
[2024-05-16 09:09] LABS: CREATININE 1.2 mg/dL (0.6-1.0); GLUCOSE 96 mg/dL (70-105); IRON 56 ug/dL (50-170)
[2024-05-16 09:10] LABS: LDL CHOLESTEROL 166 mg/dL (5-100); TRIGLYCERIDE 97 mg/dL (0-150); UREA NITROGEN BLOOD 14 mg/dL (9-23)
[2024-05-16 09:11] LABS: ALANINE AMINOTRANSFERASE 15 IU/L (10-49); ALBUMIN 4.9 g/dL (3.2-4.8); ASPARTATE AMINOTRANSFERASE 23 IU/L (<34)
[2024-05-16 09:12] LABS: BILIRUBIN TOTAL 0.7 mg/dL (0.1-1.0); CHOLESTEROL 251 mg/dL (<200); HDL CHOLESTEROL 63 mg/dL (>65); PROTEIN TOTAL 8.5 g/dL (6.0-8.3); TOTAL IRON BINDING CAPACITY 371 ug/dl (250-425)
[2024-05-16 09:14] LABS: T4 FREE 1.24 ng/dL (0.89-1.76); THYROID STIMULATING HORMONE 0.56 uIU/mL (0.55-4.78)
[2024-05-16 09:32] LABS: RBC URINE 0-2 /hpf (0-2); SQUAMOUS EPITHELIAL CELL URINE 1+ /lpf (RARE/1+); WBC URINE 0-2 /hpf (0-2)
[2024-05-16 09:33] LABS: BACTERIA URINE 1+; YEAST URINE NONE SEEN
[2024-05-16 09:54] LABS: BASOPHILS % 0.3 % (0.0-2.0); DIFFERENTIAL COMMENT 0; EOSINOPHILS % 0.1 % (0.0-5.0); HEMATOCRIT. 40.9 % (36.0-48.0); HEMOGLOBIN. 12.8 g/dL (12.0-16.0); MEAN CORPUSCULAR HEMOGLOBIN 24.4 pg (28.0-32.0); MEAN CORPUSCULAR HGB CONC 31.2 g/dL (31.0-37.0); MEAN CORPUSCULAR VOLUME 78.3 fL (81.0-99.0); MONOCYTES % 8.7 % (2.0-8.0); NEUTROPHILS % 73.9 % (40.0-76.0); PLATELET 316 x1000/uL (130-400); RED BLOOD CELL COUNT 5.23 mill/uL (4.2-5.4); RED CELL DISTRIBUTION WIDTH 16.2 % (11.6-14.6); WHITE BLOOD COUNT 7.6 x1000/uL (4.5-11.0)
[2024-05-16 12:43] LABS: ERYTHROCYTE SEDIMENTATION RATE 17 mm/hr (0-30)
[2024-05-16 13:14] LABS: VITAMIN B12 SERUM 556 pg/mL (211-911)
[2024-05-17 09:09] LABS: *T3 UPTAKE 26 % (24-39)
== END | disposition home or self-care (01) ==
LOC: LAB 07:21
PROVIDERS: ATTEND Internal Medicine Geriatric Medicine
DX: Z01.818 Encounter for other preprocedural examination (principal); I10 Essential (primary) hypertension; J45.909 Unspecified asthma, uncomplicated
CPT/HCPCS: 36415; 71046; 80053; 80061; 81003; 82607; 83036; 83540; 83550; 84439; 84442; 84443; 84479; 85025; 85651; 86592

== ENCOUNTER 2024-05-19 06:01 | Day surgery (SDC) | payer BC ==
[~2024-05-19] VITALS: Ht 162.6 cm; Wt 77.1 kg
[~2024-05-19 06:01] MED LIST changes: +LATA2.5D14 EACHEYE; +MONT-46 PO; +NEBI5TAB9 PO
[2024-05-19] MEDS ORDERED: LIDOCAINE HCL/EPINEPHRINE 1%-EPI 1:100,000 20ML VIAL ONE (06:42)
[2024-05-19] MEDS ORDERED: EPINEPHRINE 1:1000 1 MG/ML AMP ONE ×2 (06:42→07:17)
[2024-05-19] MEDS ORDERED: POLYMYXIN B SULFATE 500000 UNITS/VIAL ONE (06:42)
[2024-05-19] MEDS: LACTATED RINGERS 1,000 ML IV SCH (06:46)
[2024-05-19] MEDS ORDERED: PROPOFOL 200MG/20ML VIAL IV ONE (07:23)
[2024-05-19] MEDS ORDERED: DEXAMETHASONE 4MG/ML 1ML VIAL ONE (07:23)
[2024-05-19] MEDS ORDERED: ROCURONIUM BROMIDE 10MG/ML VIAL 5ML IV ONE (07:23)
[2024-05-19] MEDS ORDERED: ONDANSETRON HCL 4MG/2ML INJ ONE (07:23)
[2024-05-19] MEDS ORDERED: FENTANYL CITRATE/PF 50MCG/ML 2ML VIAL ONE ×2 (07:24→08:46)
[2024-05-19] MEDS ORDERED: MIDAZOLAM HCL 2 MG/2 ML VIAL ONE (07:24)
[2024-05-19] MEDS ORDERED: MEPERIDINE HCL/PF 25MG/ML CPJ IV PRN (08:00)
[2024-05-19] MEDS ORDERED: ONDANSETRON HCL 4MG/2ML INJ IV PRN ×2 (08:00→09:00)
[2024-05-19] MEDS ORDERED: LABETALOL 5MG/ML 4ML INJ IV PRN (08:00)
[2024-05-19] MEDS ORDERED: SUGAMMADEX SODIUM 200MG/2ML VIAL IV ONE (08:35)
[2024-05-19] MEDS ORDERED: ROPIVACAINE HCL 1% 20 ML VIAL EPI ONE (08:35)
[2024-05-19] MEDS ORDERED: MORPHINE SULFATE 2 MG/ML INJ (NOT FOR IM USE) IV PRN (09:00)
[2024-05-19] MEDS ORDERED: HYDROCODONE/ACETAMINOPHEN 5/325MG TABLET PO PRN ×2 (09:00)
[2024-05-19] MEDS ORDERED: T3 PO (09:00)
[2024-05-19] MEDS ORDERED: TRAM50TA3 MT (09:00)
[2024-05-19] MEDS ORDERED: NALOXONE HCL 0.4MG/ML VIAL IV PRN (09:15)
[2024-05-19 10:24] VITALS: BP 156/82; PULSE 89; RESP 22
[2024-05-19] MEDS: HYDROMORPHONE HCL/PF 1MG/ML INJ IV PRN (10:24)
[2024-05-29] MEDS ORDERED: TRAM50TA3 MT (14:09)
== END 2024-05-19 14:45 | disposition home or self-care (01) ==
LOC: OR 06:01
DX: M75.101 Unspecified rotator cuff tear or rupture of right shoulder, not specified as traumatic (principal); I10 Essential (primary) hypertension; J45.909 Unspecified asthma, uncomplicated; G89.29 Other chronic pain; Z79.899 Other long term (current) drug therapy; Z88.2 Allergy status to sulfonamides; Z88.8 Allergy status to other drugs, medicaments and biological substances; Z91.030 Bee allergy status; Z90.710 Acquired absence of both cervix and uterus; Z98.890 Other specified postprocedural states
CPT/HCPCS: 29827; 29826; J3010; J1100; J3490 ×3; J2004; J2250; J2405; J2704; J2795; J1171; J7040; 64415; C1713

== ENCOUNTER → 2024-08-28 | Outpatient (CLI) | payer BC ==
[~2024-08-28] MED LIST changes: +CEL200 MT; +T3 PO; +TRAM50TA3 MT
[2024-08-28 10:50] LABS: CLARITY URINE CLEAR (CLEAR); COLOR URINE YELLOW (YELLOW); GLUCOSE URINE NEGATIVE (NEGATIVE); KETONES URINE NEGATIVE (NEGATIVE); LEUKOCYTE ESTERASE URINE TRACE (NEGATIVE); NITRITE URINE NEGATIVE (NEGATIVE); OCCULT BLOOD URINE 1+ (NEGATIVE); PROTEIN URINE NEGATIVE (NEGATIVE); SPECIFIC GRAVITY URINE 1.021 (1.005-1.030); UROBILINOGEN URINE 0.2 E.U./dL (0.2-1.0)
[2024-08-28 10:56] LABS: BASOPHILS % 0.6 % (0.0-2.0); DIFFERENTIAL COMMENT 0; EOSINOPHILS % 0.3 % (0.0-5.0); HEMATOCRIT. 40.3 % (36.0-48.0); HEMOGLOBIN. 12.7 g/dL (12.0-16.0); LYMPHOCYTES % 28.5 % (20.0-50.0); MEAN CORPUSCULAR HEMOGLOBIN 23.8 pg (28.0-32.0); MEAN CORPUSCULAR HGB CONC 31.6 g/dL (31.0-37.0); MEAN CORPUSCULAR VOLUME 75.3 fL (81.0-99.0); MEAN PLATELET VOLUME 8.6 fl (7.4-10.4); MONOCYTES % 12.2 % (2.0-8.0); NEUTROPHILS % 58.4 % (40.0-76.0); PLATELET 257 x1000/uL (130-400); RED BLOOD CELL COUNT 5.35 mill/uL (4.2-5.4); RED CELL DISTRIBUTION WIDTH 15.3 % (11.6-14.6); WHITE BLOOD COUNT 5.5 x1000/uL (4.5-11.0)
[2024-08-28 10:57] LABS: CHLORIDE 100 mEq/L (98-107); SODIUM 139 mEq/L (136-145)
[2024-08-28 10:59] LABS: CALCIUM 9.9 mg/dL (8.7-10.4); CARBON DIOXIDE 31 mEq/L (21-32)
[2024-08-28 11:04] LABS: CREATININE 1.2 mg/dL (0.6-1.0); GLUCOSE 92 mg/dL (70-105); TRIGLYCERIDE 112 mg/dL (0-150); UREA NITROGEN BLOOD 18 mg/dL (9-23)
[2024-08-28 11:05] LABS: LDL CHOLESTEROL 142 mg/dL (5-100)
[2024-08-28 11:06] LABS: ALANINE AMINOTRANSFERASE 12 IU/L (10-49); ALBUMIN 4.3 g/dL (3.2-4.8); ASPARTATE AMINOTRANSFERASE 19 IU/L (<34); BILIRUBIN TOTAL 0.6 mg/dL (0.1-1.0); CHOLESTEROL 224 mg/dL (<200); HDL CHOLESTEROL 54 mg/dL (>65)
[2024-08-28 11:07] LABS: PROTEIN TOTAL 7.9 g/dL (6.0-8.3)
[2024-08-28 11:14] LABS: BACTERIA URINE 3+; SQUAMOUS EPITHELIAL CELL URINE 1+ /lpf (RARE/1+); YEAST URINE NONE SEEN
[2024-08-28 11:23] LABS: FOLIC ACID (FOLATE) SERUM 15.34 ng/mL (>5.38)
[2024-08-29 08:09] LABS: CANCER ANTIGEN 125 8.6 U/mL (0.0-38.1)
== END | disposition home or self-care (01) ==
LOC: LAB 08:51
PROVIDERS: ATTEND Internal Medicine Geriatric Medicine
DX: I10 Essential (primary) hypertension (principal); R73.9 Hyperglycemia, unspecified; N39.0 Urinary tract infection, site not specified
CPT/HCPCS: 36415; 80053; 80061; 81001; 81003; 82746; 83001; 83036; 85025; 86304; 87077; 87186

== ENCOUNTER → 2025-02-02 | Outpatient (CLI) | payer BC | END | disposition home or self-care (01) | LOC: US 12:50 | PROVIDERS: ATTEND Internal Medicine Geriatric Medicine | DX: N83.209 Unspecified ovarian cyst, unspecified side (principal); Z90.710 Acquired absence of both cervix and uterus | CPT/HCPCS: 76830; 76856 ==

== ENCOUNTER → 2025-02-21 | Outpatient (CLI) | payer BC ==
[~2025-02-21] MED LIST changes: -LATA2.5D14 EACHEYE; +LATA2.5D7 EACHEYE
[2025-02-21 08:29] LABS: CREATININE 1.4 mg/dL (0.6-1.0); TRIGLYCERIDE 100 mg/dL (0-150); UREA NITROGEN BLOOD 15 mg/dL (9-23)
[2025-02-21 08:30] LABS: LDL CHOLESTEROL 189 mg/dL (5-100)
[2025-02-21 08:31] LABS: ASPARTATE AMINOTRANSFERASE 19 IU/L (<34)
[2025-02-21 08:32] LABS: BILIRUBIN TOTAL 0.6 mg/dL (0.1-1.0); PROTEIN TOTAL 7.9 g/dL (6.0-8.3)
== END | disposition home or self-care (01) ==
LOC: LAB 07:39
PROVIDERS: ATTEND Internal Medicine Geriatric Medicine
DX: I10 Essential (primary) hypertension (principal); R73.03 Prediabetes
CPT/HCPCS: 36415; 80053; 80061; 82728; 83036; 83540; 83550